=== PATIENT | female | born 2000 | race Caucasian/White ===

== ENCOUNTER 2024-11-03 20:50 | Emergency (ER) | payer SELFPAY ==
[~2024-11-03] VITALS: Ht 170.2 cm; Wt 54.4 kg
[2024-11-03 21:27] VITALS: O2SAT 100
[2024-11-03 21:59] LABS: CLARITY URINE TURBID (CLEAR); COLOR URINE YELLOW (YELLOW); GLUCOSE URINE NEGATIVE (NEGATIVE); KETONES URINE NEGATIVE (NEGATIVE); LEUKOCYTE ESTERASE URINE 3+ (NEGATIVE); NITRITE URINE NEGATIVE (NEGATIVE); OCCULT BLOOD URINE TRACE (NEGATIVE); PROTEIN URINE 1+ (NEGATIVE); SPECIFIC GRAVITY URINE 1.031 (1.005-1.030)
[2024-11-03 22:51] LABS: WBC URINE TNTC /hpf (0-2)
[2024-11-03 22:52] LABS: BACTERIA URINE 2+; SQUAMOUS EPITHELIAL CELL URINE 1+ /lpf (RARE/1+)
[2024-11-04] MEDS ORDERED: CEPH500T MT (00:22)
[2024-11-04 00:47] VITALS: BP 121/67; PULSE 79; RESP 17; TEMP 37.05852; O2SAT 100
== END 2024-11-04 00:49 | disposition home or self-care (01) ==
LOC: ER 20:50
DX: N39.0 Urinary tract infection, site not specified (principal)
CPT/HCPCS: 81003; 87210; 99283